=== PATIENT | male | born 2000 | race Caucasian/White ===

== ENCOUNTER 2020-02-16 03:58 | Emergency (ER) | payer OTHER ==
[~2020-02-16] VITALS: Ht 172.7 cm; Wt 77.3 kg
[2020-02-16 04:13] VITALS: TEMP 97.6
[2020-02-16 04:32] LABS: BASO # 0.1 (0.0-0.2); BASO % 0.7 % (0.0-2.0); EOS # 0.2 (0.0-0.7); EOS % 2.4 % (0-4.0); GRAN # 3.4 (1.4-6.5); GRAN % 38.4 % (42.2-75.2); HEMOGLOBIN 15.2 g/dl (12.5-16.1); LYMPH # 4.5 (1.2-3.4); LYMPH % 50.3 % (20.0-51.0); MEAN CELL VOLUME 85 fl (80.0-95.0); MEAN CORPUSCULAR HEMOGLOBIN 29 pg (26.0-32.0); MEAN CORPUSCULAR HGB CONC 34 g/dl (33.0-37.0); MEAN PLATELET VOLUME 9.5 fl (7.4-10.4); MONO # 0.7 (0.1-0.6); MONO % 8.1 % (1.7-9.3); PLATELET COUNT 298 K/mm3 (130-400); RED BLOOD COUNT 5.27 M/mm3 (4.20-5.60)
[2020-02-16 04:38] LABS: COLLECTION METHOD CLEAN CATCH
[2020-02-16 04:44] LABS: ALANINE AMINOTRANSFERASE 20 U/L (4-49); ALBUMIN 4.3 gm/dL (3.5-5.0); ALKALINE PHOSPHATASE 70 U/L (50-136); ANION GAP 10 mmol/L (7-16); AST,SGOT 21 U/L (15-37); BILIRUBIN,TOTAL 0.3 mg/dL (0.0-1.0); BLOOD UREA NITROGEN 11 mg/dL (9-20); CALCIUM 8.9 mg/dL (8.4-10.2); CARBON DIOXIDE 23 mmol/L (22-30); CHLORIDE 109 mmol/L (98-107); CREATININE, serum 0.95 (0.66-1.25); GLUCOSE 106 mg/dL (74-106); LIPASE 80 U/L (23-300); POTASSIUM 3.7 mmol/L (3.4-5.0); SODIUM 142 mmol/L (137-145); TOTAL PROTEIN 7.4 gm/dL (6.4-8.2)
[2020-02-16 04:45] LABS: C-REACTIVE PROTEIN < 0.5 mg/dL (0.0-0.9)
[2020-02-16 04:45] LABS: MUCOUS Present /lpf; PH 5 (5-8); SQUAMOUS EPITHELIAL 0-2 /hpf; URINE APPEARANCE Cloudy; URINE BACTERIA None Seen /hpf; URINE BILIRUBIN Negative (NEGATIVE); URINE BLOOD 3+ (NEGATIVE); URINE COLOR Yellow; URINE GLUCOSE Negative (NEGATIVE); URINE KETONE Negative (NEGATIVE); URINE LEUKOCYTE ESTERASE Trace (NEGATIVE); URINE NITRATE Negative (NEGATIVE); URINE PROTEIN(semi-quant) 1+ (NEGATIVE); URINE RBC >50 /hpf; URINE UROBILINOGEN Negative (NEGATIVE)
[2020-02-16] MEDS ORDERED: CIPRO 500MG TA500 MG PO (07:04)
[2020-02-16] MEDS ORDERED: NORCO 325 MG-51 TAB PO (08:20)
[2020-02-16] MEDS ORDERED: PHENERGAN 25 TA25 MG PO (08:20)
[2020-02-16] MEDS ORDERED: FLOMAX 0.40.4 MG/CAP PO (08:20)
[2020-02-16 09:00] VITALS: BP 138/102; PULSE 83
== END 2020-02-16 09:05 | disposition home or self-care (01) ==
LOC: COL.ER 03:58
PROVIDERS: Emergency Medicine
DX: N20.1 Calculus of ureter (principal); Z88.1 Allergy status to other antibiotic agents
CPT/HCPCS: J0744; J1885; J2270; J2550; Q9967

== ENCOUNTER 2020-02-24 21:22 | Emergency (ER) | payer OTHER ==
[~2020-02-24] VITALS: Ht 172.7 cm; Wt 81.8 kg
[~2020-02-24 21:22] MED LIST: CIPRO 500MG TA500 MG PO; FLOMAX 0.40.4 MG/CAP PO; NORCO 325 MG-51 TAB PO; PHENERGAN 25 TA25 MG PO
[2020-02-24 21:25] VITALS: TEMP 97.9
[2020-02-24 22:10] LABS: COLLECTION METHOD CLEAN CATCH
[2020-02-24 22:13] LABS: BASO # 0.1 (0.0-0.2); BASO % 0.6 % (0.0-2.0); EOS # 0.2 (0.0-0.7); EOS % 1.8 % (0-4.0); GRAN % 63.9 % (42.2-75.2); HEMATOCRIT 44.6 % (36.0-47.0); HEMOGLOBIN 15.2 g/dl (12.5-16.1); LYMPH # 2.7 (1.2-3.4); MEAN CELL VOLUME 85 fl (80.0-95.0); MEAN CORPUSCULAR HEMOGLOBIN 29 pg (26.0-32.0); MEAN CORPUSCULAR HGB CONC 34 g/dl (33.0-37.0); MEAN PLATELET VOLUME 9.1 fl (7.4-10.4); MONO # 0.9 (0.1-0.6); MONO % 8.5 % (1.7-9.3); PLATELET COUNT 314 K/mm3 (130-400); RED BLOOD COUNT 5.23 M/mm3 (4.20-5.60); REDCELL DISTRIBUTION WIDTH-CV 11.9 % (11.5-14.5)
[2020-02-24 22:17] LABS: PH 7 (5-8); SQUAMOUS EPITHELIAL None Seen /hpf; URINE APPEARANCE Clear; URINE BACTERIA Rare /hpf; URINE BILIRUBIN Negative (NEGATIVE); URINE BLOOD 1+ (NEGATIVE); URINE COLOR Straw; URINE GLUCOSE Negative (NEGATIVE); URINE KETONE Negative (NEGATIVE); URINE LEUKOCYTE ESTERASE Trace (NEGATIVE); URINE NITRATE Negative (NEGATIVE); URINE PROTEIN(semi-quant) Negative (NEGATIVE); URINE RBC 0-2 /hpf; URINE UROBILINOGEN Negative (NEGATIVE)
[2020-02-24 22:25] LABS: ALBUMIN 4.5 gm/dL (3.5-5.0); BILIRUBIN,TOTAL 0.2 mg/dL (0.0-1.0); CALCIUM 9.4 mg/dL (8.4-10.2); CREATININE, serum 1.16 (0.66-1.25); POTASSIUM 3.9 mmol/L (3.4-5.0); TOTAL PROTEIN 7.7 gm/dL (6.4-8.2)
[2020-02-24] MEDS ORDERED: CIPRO 250MG TA250 MG PO (22:25)
[2020-02-24] MEDS ORDERED: NORCO 325 MG-51 TAB PO (22:44)
[2020-02-24] MEDS ORDERED: PROMETHAZINE12.5 M5 PO (22:45)
[2020-02-24 23:20] VITALS: BP 129/73; PULSE 82
[2020-02-28] MEDS ORDERED: NEURONTIN300 MG/CAP PO (12:22)
[2020-02-28] MEDS ORDERED: TOPAMAX 100MG100 M1 PO (12:23)
[2020-02-28] MEDS ORDERED: TOPAMAX200 MG PO (12:24)
[2020-02-28] MEDS ORDERED: EFFEXOR-XR150 MG PO (12:25)
== END 2020-02-24 23:20 | disposition home or self-care (01) ==
LOC: COL.ER 21:22
PROVIDERS: Emergency Medicine
DX: N20.1 Calculus of ureter (principal); Z88.1 Allergy status to other antibiotic agents
CPT/HCPCS: J1885; J2270; J2405; J7030